=== PATIENT | female | born 1990 | race Caucasian/White ===

== ENCOUNTER 2019-02-19 14:09 | Emergency (ER) | payer BC ==
--- NOTE | 2019-02-19 14:41 | ED ---
GI/ HPI - HPI Summary HPI Summary: This patient is a 28 year old F presenting to [facility] with a chief complaint of inability to urinate and abdominal distension since 1500 on 02/18/19. Pt reports pressure on her abdomen. Patient rates the pain 8/10 in severity. Pt has had no PMHx of UTI, kidney stones, hematuria and nothing similar to this episode has occurred in the past. Pt is currently at [facility] for previous abuse of cocaine and was asked to provide a urine sample for a court mandated drug screen and she is unable to provide a sample. Pt was in longterm prior going to [facility]. Pt is currently on suboxone and is on hydroxzine for anxiety. Patient reports nausea, vomiting, sweats. Pt has had eggs, Sudanese toast, and water today but still has not urinated. Patient denies burning with urination, vaginal itching, fever, vaginal bleeding. Her last BM was the morning of 02/17/19. Her LNMP was 02/17/19. A4 (elective). Initial vitals, per triage: HR 88 bpm, BP 140/96, O2 sat 94% - History of Current Complaint Chief Complaint: EDUrogenitalProblems Time Seen by Provider: 02/19/19 14:24 Stated Complaint: DISTENEDE ABD INABLILITY TO URINATE Hx Obtained From: Patient, Other: - Eboni Ramirez, SOCIETY REPORTER at [facility] Hx Last Menstrual Period: 02/17/19 Onset/Duration: Started Days Ago - last pm, Still Present Timing: Constant Severity: Severe Current Severity: Severe Pain Intensity: 8 Location of Pain: Diffuse Pain Characteristics: Pressure Associated Signs and Symptoms: Positive: Nausea, Vomiting, Constipation, Abdominal Pain, Other: - pos - sweats, neg - vaginal bleeding, dysuria. Negative: Fever, Hematuria, Dysuria Aggravating Factor(s): Nothing Alleviating Factor(s): Nothing - Allergy/Home Medications Allergies/Adverse Reactions: Allergies Allergy/AdvReac Type Severity Reaction Status Date / Time azithromycin Allergy Intermediate Rash Verified 02/19/19 14:20 PMH/Surg Hx/FS Hx/Imm Hx Previously Healthy: No History: Denies: Hx Kidney Infection, Hx Kidney Stones Sensory History: Denies: Hx Legally Blind EENT History: Denies: Hx Deafness Psychiatric History: Reports: Hx Anxiety - now on hydroxyzine , Hx Substance Abuse - cocaine, now on suboxone - Surgical History Surgical History: None Infectious Disease History: No Infectious Disease History: Denies: Traveled Outside the [place] in Last 30 Days - Family History Known Family History: Negative: Hypertension, Diabetes, Renal Disease Family History: Father - of gunshot wound, mother - alive and well - Social History Lives: [facility] Living - [facility] for substance abuse of cocaine Alcohol Use: None Hx Substance Use: Yes - Cocaine, none since [facility] Substance Use Type: Reports: Cocaine Hx Tobacco Use: Yes Smoking Status (MU): Current Every Day Smoker Review of Systems Positive: Skin Diaphoresis. Negative: Fever Cardiovascular: Negative Respiratory: Negative Positive: Vomiting, Nausea Positive: no symptoms reported, other - pos - urge to void, but can not void. Negative: burning, dysuria, hematuria Skin: Negative Neurological: Negative Psychological: Normal All Other Systems Reviewed And Are Negative: Yes Physical Exam - Summary Physical Exam Summary: Appearance: well-appearing, moderate pain distress due to abdominal distension, well-nourished Skin: Warm, color reflects adequate perfusion, dry Head: Normal Head/Face inspection, atraumatic Eyes: Conjunctiva clear ENT: Normal inspection Neck: Supple, no nodes, no JVD Respiratory: Lungs clear, normal breath sounds, no respiratory distress Cardio: RRR, No murmur, pulses normal, brisk capillary refill Abdomen: Soft, nontender, Distended, bladder palpable correction above umbilicus correction to costal margin Bowel sounds: Present Musculoskeletal: Strength Intact/ROM intact, no calf tenderness, no edema. Psychological: Normal, no evidence of intoxication by her speech or behavior Neuro: Alert, muscle tone normal, no focal deficit Triage Information Reviewed: Yes Vital Signs On Initial Exam: Initial Vitals Temp Pulse Resp BP Pulse Ox 98.4 F 88 14 140/96 94 02/19/19 14:17 02/19/19 14:17 02/19/19 14:17 02/19/19 14:17 02/19/19 14:17 Vital Signs Reviewed: Yes Procedures - Procedure Summary Procedure Summary: Lopez catheter insertion by physician, 18 gauge catheter under sterile technique , for drainage of urine. Diagnostics - Vital Signs Vital Signs Temp Pulse Resp BP Pulse Ox 02/19/19 14:17 98.4 F 88 14 140/96 94 - Laboratory Lab Statement: Any lab studies that have been ordered have been reviewed, and results considered in the medical decision making process. Re-Evaluation - Re-Evaluation First Eval Re-Evaluation Time: 14:58 Change: Improved Comment: Dr. Knowles placed 18 gauge catheter under sterile technique, for drainage of urine. Second Eval Re-Evaluation Time: 15:22 Change: Improved Comment: FHx obtained, mother - alive and well, father - of gunshot wound, no PMHx of kidney issues. Third Eval Re-Evaluation Time: 15:26 Change: Improved Comment: Urine is draining well with the lopez in place. It is clear, and dark. 1600 cc collected so far. Fourth Eval Re-Evaluation Time: 16:45 Change: Improved Comment: Discharge re-evaluation. Pt agrees to leaving lopez in place. GIGU Course/Dx - Course Course Of Treatment: 28 yo F resident of [facility] presents with acute urinary retention and inability to provide a urine sample for a court mandated urine drug screen. Pt is on the medications suboxone and hydroxyzine, both of which can cause urinary retention and were started on 02/16/19. Her initial physical exam revealed a distended abdomen, with her bladder palpable correction between her umbilicus and costal margin. Pt medications reviewed this visit and include suboxone and hydroxyzine. Nurses notes reviewed. Allergies noted. High blood pressure noted. Blood work obtained. Initial bladder scan showed greater than 999ml. 15:08 Lopez catheter insertion by physician 18 gauge catheter under sterile technique, full drainage of urine based on bladder scan of zero at time of discharge. Total urine drained 1600cc. Early in the ED course the patient was given hydoxyzine 50mg po for anxiety, and she stated she had taken it in the past and was currently taking it with no problem. At 15:13 , pt was also administered her pain medications Gabapentin 300 mg. Consulted Eboni Ramirez about med management, who suggests stopping hydroxyzine and starting clonidine 0.1mg and buspar for anxiety and advised leaving Lopez catheter in to prevent a further epidode of urinary retention. Eboni Ramirez will re-evaluate the lopez in the next day or two. Pt was given her first dose of clonidine 0.1mg in the ED without adverse effect and she is advised to start her Buspar in the am. Patient will be discharged with prescriptions for buspirone and clonidine. The patient is agreeable with this plan. - Diagnoses Differential Diagnoses - Female: Bladder Dysfunction, Urinary Tract Infection, Other - acute urinary retention Provider Diagnoses: Acute urinary retention, Hx of substance abuse, Anxiety - Physician Notifications Discussed Care Of Patient With: Liliya Ramirez Time Discussed With Above Provider: 16:28 Instructed by Provider To: Other - Consulted Eboni Ramirez about med management , who suggests stopping hydroxyzine and advised leaving Lopez catheter in. Discharge ED - Sign-Out/Discharge Documenting (check all that apply): Patient Departure - Discharge back to [facility] Patient Received Moderate/Deep Sedation with Procedure: No - Discharge Plan Condition: Stable Disposition: SUBSTANCE ABUSE REHAB Prescriptions: busPIRone TAB* [Buspar TAB *] 10 mg PO TID #90 tab cloNIDine TAB* [Catapres 0.1 MG TAB*] 0.1 mg PO BID PRN #30 tab PRN Reason: Anxiety Patient Education Materials: Lopez Catheter Placement and Care (ED), Acute Urinary Retention in Women (ED) Referrals: No Primary Care Phys,NOPCP [Primary Care Provider] - Additional Instructions: We spoke with Eboni Ramirez NP for [facility] and she advises to leave the lopez catheter in place overnight. She will evaluate you again in the morning. She advised us to stop the hydoxyzine. You will continue the suboxone. She advised an additional two medications for anxiety. We gave the first one, Clonidine 0.1mg in the ER. You will start Buspar 10mg three times a day tomorrow , in addition to the Clonidine as needed. Return to the ER if any new or worsening symptoms. - Billing Disposition and Condition Condition: STABLE Disposition: Substance Abuse Rehab - Attestation Statements Document Initiated by Shai: Yes Documenting Scribe: Sia Mittal Provider For Whom Shai is Documenting (Include Credential): Dr. Tracy Knowles MD Scribe Attestation: Sia Upton scribed for Dr. Tracy Knowles MD on 03/13/19 at 1750. Scribe Documentation Reviewed: Yes Provider Attestation: The documentation as recorded by the Sia marrufo accurately reflects the service I personally performed and the decisions made by me, Dr. Tracy Knowles MD Status of Scribe Document: Viewed
[2019-02-19] MEDS ORDERED: Gabapentin CAP(*) 300 MG PO ONE (15:12)
[2019-02-19] MEDS ORDERED: hydrOXYzine HCL TAB* 50 MG PO ONE (15:12)
[2019-02-19 15:41] LABS: Urine Appearance Clear; Urine Bilirubin Negative (Negative); Urine Blood Negative (Negative); Urine Color Yellow; Urine Glucose Negative (Negative); Urine Ketones Negative (Negative); Urine Nitrite Negative (Negative); Urine Protein Negative (Negative); Urine Specific Gravity 1.012 (1.010-1.030); Urine Urobilinogen Negative (Negative)
[2019-02-19 15:47] LABS: Urine Benzodiazepine Screen None Detected (None Detect); Urine Opiates Screen None Detected (None Detect)
[2019-02-19] MEDS ORDERED: cloNIDine TAB* 0.1 MG PO ONE (16:29)
[2019-02-19 17:18] VITALS: BP 140/82
== END 2019-02-19 17:18 | disposition home or self-care (01) ==
LOC: ED 14:09
DX: R33.9 Retention of urine, unspecified (principal); F41.9 Anxiety disorder, unspecified; F14.11 Cocaine abuse, in remission; F17.210 Nicotine dependence, cigarettes, uncomplicated; Z79.891 Long term (current) use of opiate analgesic; Z88.1 Allergy status to other antibiotic agents
CPT/HCPCS: 51702; 80307; 81003; 99284; A9270-GY